=== PATIENT | male | born 1965 | race Caucasian/White ===

== ENCOUNTER 2017-02-21 13:42 | Emergency (ER) | payer OTHER ==
[2017-02-21] MEDS ORDERED: DIPH/PERTUSS(ACELL)/TETANUS VAC/PF 0.5 ML SYR (>=10YO) IM ONE (13:50)
--- NOTE | 2017-02-21 13:52 | ER Document Report ---
ED Medical Screen (RME) - General Chief Complaint: Fall Injury Stated Complaint: FALL LEFT ANKLE INJURY Time Seen by Provider: 02/21/17 13:50 TRAVEL OUTSIDE OF THE [place] IN LAST 30 DAYS: No - HPI Patient complains to provider of: Right elbow, left ankle, right knee injury Onset: Just prior to arrival Onset/Duration: Sudden Quality of pain: Achy Severity: Mild Exacerbated by: Movement Relieved by: Denies Notes: 02/21/17 13:51 Patient is a 51-year-old male who presents to the emergency room complaining of injury to his left ankle, right elbow, right knee, injuries were sustained when he fell through the floor of a building, he is able to ambulate on the right leg but the left ankle hurts too much to bear weight, the right knee has some abrasions on it but he has full range of motion, he reports a laceration to the right elbow, last tetanus shot is unknown - Related Data Allergies/Adverse Reactions: No Known Allergies Allergy (Verified 02/21/17 13:43) Past Medical History Neurological Medical History: Denies: Hx Seizures Renal/ Medical History: Denies: Hx Peritoneal Dialysis Psychiatric Medical History: Reports: Hx Anxiety, Hx Depression Past Surgical History: Denies: Hx Pacemaker Physical Exam - Vital signs Vitals: Temp Pulse Resp BP Pulse Ox 98.2 F 76 18 133/77 H 99 02/21/17 13:43 02/21/17 13:43 02/21/17 13:43 02/21/17 13:43 02/21/17 13:43 Course - Vital Signs Vital signs: Temp Pulse Resp BP Pulse Ox 98.2 F 76 18 133/77 H 99 02/21/17 13:43 02/21/17 13:43 02/21/17 13:43 02/21/17 13:43 02/21/17 13:43
[2017-02-21] MEDS ORDERED: LIDOCAINE 1%/EPINEPHRINE INJ 20 ML VIAL INFIL ONE (14:25)
--- NOTE | 2017-02-21 14:26 | ER Document Report ---
HPI - HPI Patient complains to provider of: arm injury Onset: Just prior to arrival Onset/Duration: Sudden Quality of pain: Achy Pain Level: 4 Associated Symptoms: denies: Headache, Nausea, Vomiting Exacerbated by: Movement Relieved by: Denies Similar symptoms previously: No Recently seen / treated by doctor: No Notes: States he was working on a deck, fell between the floor joists. Patient complains of left ankle pain, abrasions to right leg, and laceration to right elbow area. - ROS ROS below otherwise negative: Yes Systems Reviewed and Negative: Yes All other systems reviewed and negative - CONSTITUTIONAL Constitutional: DENIES: Fever, Chills - NEURO Neurology: DENIES: Headache, Weakness - RESPIRATORY Respiratory: DENIES: Coughing - GASTROINTESTINAL Gastrointestinal: DENIES: Nausea, Patient vomiting - REPRODUCTIVE Reproductive: DENIES: : - MUSCULOSKELETAL Musculoskeletal: REPORTS: Extremity pain - left ankle, r elbow. DENIES: Back Pain - DERM Skin Color: Normal Skin Problems: Abrasion, Laceration Past Medical History - General Information source: Patient - Social History Smoking Status: Never Smoker Frequency of alcohol use: None Drug Abuse: None Occupation: [employer] Lives with: Family Family History: Reviewed & Not Pertinent Patient has suicidal ideation: No Patient has homicidal ideation: No - Medical History Medical History: Other - pernicious anemia Neurological Medical History: Denies: Hx Seizures Renal/ Medical History: Denies: Hx Peritoneal Dialysis Psychiatric Medical History: Reports: Hx Anxiety, Hx Depression Surgical Hx: Negative Past Surgical History: Denies: Hx Pacemaker - Immunizations Immunizations up to date: No Vertical Provider Document - CONSTITUTIONAL Agree With Documented VS: Yes Exam Limitations: No Limitations General Appearance: WD/WN, No Apparent Distress - INFECTION CONTROL TRAVEL OUTSIDE OF THE [place] IN LAST 30 DAYS: No - HEENT HEENT: Atraumatic, Normocephalic - NECK Neck: Normal Inspection, Supple - RESPIRATORY Respiratory: Breath Sounds Normal, No Respiratory Distress O2 Sat by Pulse Oximetry: 99 - CARDIOVASCULAR Cardiovascular: Regular Rate, Regular Rhythm Pulses: Normal: Radial, Dorsalis pedis - MUSCULOSKELETAL/EXTREMETIES Musculoskeletal/Extremeties: MAEW, Tender - left medial malleolus, Edema - left lateral malleolus - NEURO Level of Consciousness: Awake, Alert, Appropriate Motor/Sensory: No Motor Deficit, No Sensory Deficit - DERM Integumentary: Warm, Dry, Laceration - RUE Notes: multiple abrasions to RUE and RLE Course - Vital Signs Vital signs: Temp Pulse Resp BP Pulse Ox 98.2 F 76 18 133/77 H 99 02/21/17 13:43 02/21/17 13:43 02/21/17 13:43 02/21/17 13:43 02/21/17 13:43 - Diagnostic Test Radiology reviewed: Image reviewed, Reports reviewed Procedures - Immobilization Left Ankle Pre-Proc Neuro Vasc Exam: Normal Immobilizer type: Ankle stirrup Performed by: PCT Post-Proc Neuro Vasc Exam: Normal Alignment checked and good: Yes - Laceration/Wound Repair Right Arm Wound length (cm): 5 Wound's Depth, Shape: Irregular Laceration pre-procedure: Betadine prep applied Anesthetic type: 1% Lidocaine w/epi Volume Anesthetic (mLs): 3 Wound explored: Clean Irrigated w/ Saline (mLs): 200 Wound Repaired With: Sutures Suture Size/Type: 5:0, Nylon Number of Sutures: 9 Layer Closure?: No Post-procedure wound care: Sterile dressing applied Post-procedure NV exam normal: Yes Complications: No Discharge - Discharge Clinical Impression: Arm laceration Qualifiers: Encounter type: initial encounter Laterality: right Qualified Code(s): S41.111A - Laceration without foreign body of right upper arm, initial encounter Abrasion of leg Qualifiers: Encounter type: initial encounter Laterality: right Qualified Code(s): S80.811A - Abrasion, right lower leg, initial encounter Left ankle sprain Qualifiers: Encounter type: initial encounter Involved ligament of ankle: unspecified ligament Qualified Code(s): S93.402A - Sprain of unspecified ligament of left ankle, initial encounter Condition: Stable Disposition: HOME, SELF-CARE Instructions: Sprained Ankle ([facility]), Soap Cleansing ([facility]), Antibiotic Ointment Protection ([facility]), Laceration Care ([facility]), Tetanus Immunization Given ([facility]), Splint Precautions ([facility]), Abrasions ([facility]) Additional Instructions: Return immediately for any new or worsening symptoms Followup with your primary care provider, call tomorrow to make a followup appointment Weightbearing as tolerated Follow-up with orthopedic doctor for any continued pain or problems. Suture removal in 10-12 days Forms: Return to Work Referrals: JUVENAL MEDRANO DO [Primary Care Provider] - Follow up as needed [facility] ([facility]) [Provider Group] - Follow up as needed
--- NOTE | 2017-02-21 14:52 | RADIOLOGY REPORT (SQ) ---
EXAM DESCRIPTION: ANKLE LEFT COMPLETE COMPLETED DATE/TIME: 02/21/2017 2:16 pm REASON FOR STUDY: injury COMPARISON: None. NUMBER OF VIEWS: Three views. TECHNIQUE: AP, lateral, and oblique radiographic images acquired of the left ankle. LIMITATIONS: None. FINDINGS: MINERALIZATION: Normal. BONES: No acute fracture or dislocation. No worrisome bone lesions. JOINTS: No effusions. SOFT TISSUES: Swelling. No foreign body. OTHER: No other significant finding. IMPRESSION: Soft tissue injury. TECHNICAL DOCUMENTATION: JOB ID: [id number] [employer]- All Rights Reserved
--- NOTE | 2017-02-21 14:53 | RADIOLOGY REPORT (SQ) ---
EXAM DESCRIPTION: ELBOW RIGHT OVER 2 VIEWS COMPLETED DATE/TIME: 02/21/2017 2:16 pm REASON FOR STUDY: injury COMPARISON: None. NUMBER OF VIEWS: Four views. TECHNIQUE: AP, lateral, and both oblique radiographic images acquired of the right elbow. LIMITATIONS: None. FINDINGS: MINERALIZATION: Normal. BONES: No acute fracture or dislocation. No worrisome bone lesions. JOINT: No effusion. SOFT TISSUES: Soft tissue injury medial aspect. No foreign body. OTHER: No other significant finding. IMPRESSION: Soft tissue injury. TECHNICAL DOCUMENTATION: JOB ID: [id number] [employer]- All Rights Reserved
[2017-02-21 16:05] VITALS: BP 130/80
== END 2017-02-21 16:05 | disposition home or self-care (01) ==
LOC: ER 13:42
PROC: 0HQBXZZ Repair Right Upper Arm Skin, External Approach (ICD-10-PCS; principal; 2017-02-21)
PROC: 2W3RX1Z Immobilization of Left Lower Leg using Splint (ICD-10-PCS; 2017-02-21)
DX: S41.111A Laceration without foreign body of right upper arm, initial encounter (principal); S80.811A Abrasion, right lower leg, initial encounter; S93.402A Sprain of unspecified ligament of left ankle, initial encounter; Z23 Encounter for immunization; W17.89XA Other fall from one level to another, initial encounter; Y93.H3 Activity, building and construction; Y92.9 Unspecified place or not applicable
CPT/HCPCS: 99284; 90471; 73610; 73080; 90715; 12002; L1902; J3490